=== PATIENT | female | born 1990 | race Caucasian/White ===

== ENCOUNTER 2017-07-28 14:48 | Emergency (ER) | payer BC, OTHER ==
[~2017-07-28] VITALS: Ht 160 cm; Wt 63.6 kg
[~2017-07-28 14:48] MED LIST: IBUP600 PO
[2017-07-28 14:50] VITALS: BP 146/78; PULSE 86; RESP 14; TEMP 98.6; O2SAT 97
[2017-07-28] MEDS ORDERED: ALPR.5 PO (15:46)
[2017-07-28] MEDS ORDERED: TRAM50TA PO (15:46)
--- NOTE | 2017-07-28 15:53 | PD ---
HPI Chief Complaint: Related Problem Time Seen by Provider: 15:43 Travel History International Travel<30 days: No Contact w/Intl Traveler<30days: No Traveled to known affect area: No History of Present Illness HPI 26-year-old female presents emergency department with history of fever 3 days ago of 103.9, treated with Tylenol. She states since that time she has not felt febrile but she has had some lower abdominal discomfort and low back pain. Patient states she is on oral control pills, but cannot remember her last menstrual period although she feels it is probably about a month and a half ago. She reports that she did take a urine test was most positive. She called her OB, who recommended she be seen to rule out ectopic or other issue. She denies vaginal discharge, urinary discomfort, or vaginal bleeding. Patient has history of chronic low back pain for which she sees a pain specialist treated with tramadol. Patient denies vomiting or diarrhea. She has had some mild nausea, but no upper respiratory symptoms. She has no known drug allergies. PFSH Past Medical History Anxiety: Yes Tetanus Vaccination: < 5 Years Influenza Vaccination: No ?: LMP: MAY 2017 Past Surgical History Other Surgery: Yes (BREAST AUGMENTATION; TUMMY TUCK WITH LIPO) Social History Alcohol Use: No Tobacco Use: No Substance Use: No Allergies-Medications (Allergen,Severity, Reaction): Coded Allergies: No Known Allergies (Unverified Adverse Reaction, Unknown, 07/28/17) Reported Meds & Prescriptions Reported Meds & Active Scripts Active Keflex (Cephalexin) 500 Mg Cap 500 Mg PO Q12H 7 Days Reported Xanax (Alprazolam) 0.5 Mg Tab 0.5 Mg PO Q8H PRN Tramadol (Tramadol HCl) 50 Mg Tab 50 Mg PO Q6H PRN Review of Systems Except as stated in HPI: all other systems reviewed are Neg General / Constitutional: Positive: Fever, No: Chills (See history of present illness) Eyes: No: Visual changes HENT: No: Headaches Cardiovascular: No: Chest Pain or Discomfort Respiratory: No: Shortness of Breath Gastrointestinal: Positive: Nausea, Abdominal Pain (Yesterday.), No: Vomiting, Diarrhea Genitourinary: No: Urgency (See history of present illness), Frequency, Dysuria , Flank Pain Musculoskeletal: Positive: Myalgias, Pain, No: Limited ROM Skin: No Rash Neurologic: No: Weakness Psychiatric: No: Depression Endocrine: No: Polydipsia Hematologic/Lymphatic: No: Easy Bruising Physical Exam Narrative GENERAL: Patient appears in no acute distress. SKIN: Warm and dry. Normal color. Normal turgor. No rash. HEAD: Atraumatic. Normocephalic. EYES: Pupils equal and round. No scleral icterus. No injection or drainage. ENT: No nasal bleeding or discharge. Mucous membranes pink and moist. Pharynx is clear. Airways patent. NECK: Trachea midline. No JVD. CARDIOVASCULAR: Regular rate and rhythm. RESPIRATORY: No accessory muscle use. Clear to auscultation. Breath sounds equal bilaterally. GASTROINTESTINAL: Abdomen soft, mild to moderate suprapubic tenderness, nondistended. No point tenderness or rebound. No CVA tenderness. Hepatic and splenic margins not palpable. MUSCULOSKELETAL: Extremities without clubbing, cyanosis, or edema. No obvious deformities. NEUROLOGICAL: Awake and alert. No obvious cranial nerve deficits. Motor grossly within normal limits. Five out of 5 muscle strength in the arms and legs. Normal speech. PSYCHIATRIC: Appropriate mood and affect; insight and judgment normal. Data Data Last Documented VS Vital Signs Date Time Temp Pulse Resp B/P (MAP) Pulse Ox O2 Delivery O2 Flow Rate FiO2 07/28/17 19:17 07/28/17 19:05 81 16 100 Room Air 07/28/17 14:50 98.6 Orders Orders Complete Blood Count With Diff (07/28/17 14:59) Basic Metabolic Panel (Bmp) (07/28/17 14:59) Beta Hcg (Quant/Titer) (07/28/17 14:59) Urinalysis - C+S If Indicated (07/28/17 14:59) Complete Rh (07/28/17 14:59) Type And Screen (07/28/17 14:59) Influenzae A/B Antigen (07/28/17 15:47) Us Pelvis (Ques Pr/Ect)W Trans (07/28/17 15:47) Acetaminophen (Tylenol) (07/28/17 18:30) Urine Culture (07/28/17 18:20) Ed Discharge Order (07/28/17 19:11) Labs Laboratory Tests Test 07/28/17 15:27 07/28/17 18:20 White Blood Count 9.1 TH/MM3 Red Blood Count 4.74 MIL/MM3 Hemoglobin 13.9 GM/DL Hematocrit 40.2 % Mean Corpuscular Volume 84.8 FL Mean Corpuscular Hemoglobin 29.3 PG Mean Corpuscular Hemoglobin Concent 34.5 % Red Cell Distribution Width 14.3 % Platelet Count 251 TH/MM3 Mean Platelet Volume 7.7 FL Neutrophils (%) (Auto) 64.5 % Lymphocytes (%) (Auto) 30.4 % Monocytes (%) (Auto) 4.8 % Eosinophils (%) (Auto) 0.1 % Basophils (%) (Auto) 0.2 % Neutrophils # (Auto) 5.9 TH/MM3 Lymphocytes # (Auto) 2.8 TH/MM3 Monocytes # (Auto) 0.4 TH/MM3 Eosinophils # (Auto) 0.0 TH/MM3 Basophils # (Auto) 0.0 TH/MM3 CBC Comment DIFF FINAL Differential Comment Blood Urea Nitrogen 6 MG/DL Creatinine 0.71 MG/DL Random Glucose 99 MG/DL Calcium Level 9.8 MG/DL Sodium Level 137 MEQ/L Potassium Level 3.9 MEQ/L Chloride Level 104 MEQ/L Carbon Dioxide Level 25.1 MEQ/L Anion Gap 8 MEQ/L Estimat Glomerular Filtration Rate 100 ML/MIN Human Chorionic Gonadotropin, Quant 137 MIU/ML Urine Color YELLOW Urine Turbidity HAZY Urine pH 7.0 Urine Specific [place] 1.021 Urine Protein TRACE mg/dL Urine Glucose (UA) NEG mg/dL Urine Ketones NEG mg/dL Urine Occult Blood NEG Urine Nitrite NEG Urine Bilirubin NEG Urine Urobilinogen LESS THAN 2.0 MG/DL Urine Leukocyte Esterase MOD Urine RBC 1 /hpf Urine WBC 4 /hpf Urine Squamous Epithelial Cells 19 /hpf Urine Transitional Epithelial Cells <1 /hpf Urine Bacteria MANY /hpf Urine Mucus FEW /lpf Microscopic Urinalysis Comment CULTURE INDICATED MDM Medical Decision Making Medical Screen Exam Complete: Yes Emergency Medical Condition: Yes Differential Diagnosis Febrile illness. Abdominal pain. Ectopic . Urinary tract infection. Threatened . Narrative Course Patient is medically stable at time of exam. Labs ordered including CBC, CMP, serum hCG, urinalysis and rapid influenza. Pelvic ultrasound is ordered to rule out ectopic . Rapid influenza is negative. CBC is unremarkable. Histories are unremarkable. Serum hCG is 137 Ultrasound showed: UTERUS: The myometrium has homogeneous echotexture without mass. RIGHT OVARY: Ovary contains no mass or significant cystic lesion. LEFT OVARY: Ovary contains no mass or significant cystic lesion. MISCELLANEOUS: No free fluid. CONCLUSION: Negative exam. No IUP identified. Urinalysis pending. 1900 hrs. care of the patient was turned over to Daquan Price PA-C pending urinalysis results. Please see his note for final disposition. Diagnosis Primary Impression: Elevated serum hCG Additional Impression: UTI (urinary tract infection) Qualified Codes: N30.00 - Acute cystitis without hematuria Scripts Cephalexin (Keflex) 500 Mg Cap 500 MG PO Q12H for Infection for 7 Days, #14 CAP 0 Refills Prov: Sourav Reyes MD 07/28/17 Disposition: 01 DISCHARGE HOME Condition: Stable Justin Chaudhry Jul 28, 2017 15:53
[2017-07-28 15:57] VITALS: BP 132/74; PULSE 88; RESP 17; O2SAT 98
[2017-07-28 17:11] LABS: AUTOMATED NEUTROPHIL # 5.9 TH/MM3 (1.8-7.7); BASOPHIL % 0.2 % (0.0-2.0); EOSINOPHIL % 0.1 % (0.0-4.0); HEMATOCRIT 40.2 % (35.0-46.0); HEMOGLOBIN 13.9 GM/DL (11.6-15.3); LYMPH % 30.4 % (9.0-44.0); LYMPHOCYTE # 2.8 TH/MM3 (1.0-4.8); MEAN CELL VOLUME 84.8 FL (80.0-100.0); MEAN CORPUSCULAR HEMOGLOBIN 29.3 PG (27.0-34.0); MEAN CORPUSCULAR HGB CONC 34.5 % (32.0-36.0); MEAN PLATELET VOLUME 7.7 FL (7.0-11.0); MONO % 4.8 % (0.0-8.0); MONOCYTE # 0.4 TH/MM3 (0-0.9); NEUT % 64.5 % (16.0-70.0); PLATELET COUNT 251 TH/MM3 (150-450); RED BLOOD COUNT 4.74 MIL/MM3 (4.00-5.30); RED CELL DISTRIBUTION WIDTH 14.3 % (11.6-17.2); WHITE BLOOD COUNT 9.1 TH/MM3 (4.0-11.0)
[2017-07-28 17:20] LABS: BICARBONATE 25.1 MEQ/L (21.0-32.0); CALCIUM 9.8 MG/DL (8.5-10.1); CREATININE 0.71 MG/DL (0.50-1.00)
--- NOTE | 2017-07-28 17:59 | RADRPT ---
EXAM DATE/TIME: 07/28/2017 17:13 [facility] COMPARISON: No previous studies available for comparison. INDICATIONS : Pelvic pain. LAB(S): Beta-hC MEDICAL HISTORY : Anxiety. SURGICAL HISTORY : Breast augmentation. Tummy tuck with liposuction. ENCOUNTER: Initial ACUITY: 1 week PAIN SCORE: 3/10 LOCATION: Bilateral pelvis MEASUREMENTS: UTERUS: 9.7 x 5.7 x 4.7 cm ENDOMETRIAL STRIPE: 17 mm RIGHT OVARY: 3.3 x 1.9 x 1.3 cm LEFT OVARY: 3.0 x 2.2 x 2.1 cm FREE FLUID: No FINDINGS: UTERUS: The myometrium has homogeneous echotexture without mass. RIGHT OVARY: Ovary contains no mass or significant cystic lesion. LEFT OVARY: Ovary contains no mass or significant cystic lesion. MISCELLANEOUS: No free fluid. CONCLUSION: Negative exam. No IUP identified. Joseph Mccrary MD on July 28, 2017 at 17:56 Board Certified Radiologist. This report was verified electronically.
[2017-07-28] MEDS ORDERED: ACETAMINOPHEN 325 MG TAB PO ONE (18:30)
[2017-07-28 19:01] LABS: BACTERIA, URINE MANY /hpf; BILIRUBIN, URINE NEG (NEG); BLOOD, URINE NEG (NEG); GLUCOSE,URINE NEG (NEG); KETONE, URINE NEG (NEG); MUCUS URINE FEW /lpf (OCC); NITRITE,URINE NEG (NEG); SQUAMOUS EPITHELIAL CELL URINE 19 /hpf (0-5); TRANSITIONAL EPI CELLS, URINE <1 /hpf; URINE COLOR YELLOW (YELLW/STRAW); URINE LEUKOCYTE ESTERASE MOD (NEG)
[2017-07-28 19:05] VITALS: BP 121/75; PULSE 81; RESP 16; O2SAT 100
[2017-07-28] MEDS ORDERED: CEPH-460 PO (19:16)
--- NOTE | 2017-07-28 19:16 | PD ---
Physical Exam Date Seen by Provider: Jul 28, 2017 Time Seen by Provider: 19:11 Narrative GENERAL: This is a well-nourished, well-developed patient, in no apparent distress. SKIN: No rashes, ecchymoses or lesions. Warm and dry. HEAD: Atraumatic. Normocephalic. EYES: PERRL, EOMI, no discharge or injection. No scleral icterus. EARS: Clear NOSE: Nasal turbinates appear normal. THROAT: Mucosa pink and moist. Airway patent. NECK: Trachea midline. supple, moves head freely. LUNGS: Clear to auscultation. CV: Regular in rhythm. ABDOMEN: Soft nontender. EXT: No clubbing cyanosis or edema. Data Data Last Documented VS Vital Signs Date Time Temp Pulse Resp B/P (MAP) Pulse Ox O2 Delivery O2 Flow Rate FiO2 07/28/17 19:05 81 16 121/75 (90) 100 Room Air 07/28/17 14:50 98.6 Orders Orders Complete Blood Count With Diff (07/28/17 14:59) Basic Metabolic Panel (Bmp) (07/28/17 14:59) Beta Hcg (Quant/Titer) (07/28/17 14:59) Urinalysis - C+S If Indicated (07/28/17 14:59) Complete Rh (07/28/17 14:59) Type And Screen (07/28/17 14:59) Influenzae A/B Antigen (07/28/17 15:47) Us Pelvis (Ques Pr/Ect)W Trans (07/28/17 15:47) Acetaminophen (Tylenol) (07/28/17 18:30) Urine Culture (07/28/17 18:20) Ed Discharge Order (07/28/17 19:11) Labs Laboratory Tests Test 07/28/17 15:27 07/28/17 18:20 White Blood Count 9.1 TH/MM3 Red Blood Count 4.74 MIL/MM3 Hemoglobin 13.9 GM/DL Hematocrit 40.2 % Mean Corpuscular Volume 84.8 FL Mean Corpuscular Hemoglobin 29.3 PG Mean Corpuscular Hemoglobin Concent 34.5 % Red Cell Distribution Width 14.3 % Platelet Count 251 TH/MM3 Mean Platelet Volume 7.7 FL Neutrophils (%) (Auto) 64.5 % Lymphocytes (%) (Auto) 30.4 % Monocytes (%) (Auto) 4.8 % Eosinophils (%) (Auto) 0.1 % Basophils (%) (Auto) 0.2 % Neutrophils # (Auto) 5.9 TH/MM3 Lymphocytes # (Auto) 2.8 TH/MM3 Monocytes # (Auto) 0.4 TH/MM3 Eosinophils # (Auto) 0.0 TH/MM3 Basophils # (Auto) 0.0 TH/MM3 CBC Comment DIFF FINAL Differential Comment Blood Urea Nitrogen 6 MG/DL Creatinine 0.71 MG/DL Random Glucose 99 MG/DL Calcium Level 9.8 MG/DL Sodium Level 137 MEQ/L Potassium Level 3.9 MEQ/L Chloride Level 104 MEQ/L Carbon Dioxide Level 25.1 MEQ/L Anion Gap 8 MEQ/L Estimat Glomerular Filtration Rate 100 ML/MIN Human Chorionic Gonadotropin, Quant 137 MIU/ML Urine Color YELLOW Urine Turbidity HAZY Urine pH 7.0 Urine Specific [place] 1.021 Urine Protein TRACE mg/dL Urine Glucose (UA) NEG mg/dL Urine Ketones NEG mg/dL Urine Occult Blood NEG Urine Nitrite NEG Urine Bilirubin NEG Urine Urobilinogen LESS THAN 2.0 MG/DL Urine Leukocyte Esterase MOD Urine RBC 1 /hpf Urine WBC 4 /hpf Urine Squamous Epithelial Cells 19 /hpf Urine Transitional Epithelial Cells <1 /hpf Urine Bacteria MANY /hpf Urine Mucus FEW /lpf Microscopic Urinalysis Comment CULTURE INDICATED MDM Medical Record Reviewed: Yes Supervised Visit with YONY: Yes Interpretation(s) Last 24 hours Impressions Pelvis Ultrasound 07/28/17 1540 Signed Impressions: Service Date/Time: Friday, July 28, 2017 17:13 - CONCLUSION: Negative exam. No IUP identified. Joseph Mccrary MD Vital Signs, 24 Hour Date Time Temp Pulse Resp B/P (MAP) Pulse Ox O2 Delivery O2 Flow Rate FiO2 07/28/17 19:05 81 16 121/75 (90) 100 Room Air 07/28/17 15:57 88 17 132/74 (93) 98 Room Air 07/28/17 15:50 17 07/28/17 14:50 98.6 86 14 146/78 (100) 97 Allergies Coded Allergies No Known Allergies (Unverified Adverse Reaction, Unknown, 07/28/17) Orders - Aaron Dennison Procedure Category Date Status Time Ed Discharge Order [place] 07/28/17 Verified 19:11 Laboratory Tests per Sally Test 07/28/17 15:27 Blood Urea Nitrogen 6 MG/DL Creatinine 0.71 MG/DL Random Glucose 99 MG/DL Calcium Level 9.8 MG/DL Sodium Level 137 MEQ/L Potassium Level 3.9 MEQ/L Chloride Level 104 MEQ/L Carbon Dioxide Level 25.1 MEQ/L Red Blood Count 4.74 MIL/MM3 White Blood Count 9.1 TH/MM3 Recent Impressions Pelvis Ultrasound 07/28/17 1547 Signed Impressions: Service Date/Time: Friday, July 28, 2017 17:13 - CONCLUSION: Negative exam. No IUP identified. Joseph Mccrary MD Active Scripts Active Reported Xanax (Alprazolam) 0.5 Mg Tab 0.5 Mg PO Q8H PRN Tramadol (Tramadol HCl) 50 Mg Tab 50 Mg PO Q6H PRN Microbiology 07/28/17 Influenza Types A,B Antigen ([facility]) - Final, Complete NEGATIVE FOR FLU A AND B ANTIGEN.... 07/28/17 Urine Culture, Received Pending Last 24 hours Impressions Pelvis Ultrasound 07/28/17 1547 Signed Impressions: Service Date/Time: Friday, July 28, 2017 17:13 - CONCLUSION: Negative exam. No IUP identified. Joseph Mccrary MD Differential Diagnosis Differential diagnoses: Early , ectopic, UTI, vaginitis Narrative Course Patient's quantitative hCG is 186. Her ultrasound shows no IUP. I suspect that the patient's is very early. Patient is aware of these findings and needs to have a repeat quantitative hCG in next 2-3 days. She has been instructed to return if she develops any increasing pain, vaginal bleeding or any other concerns. Patient verbalizes understanding and agrees with the treatment plan of follow-up. Patient also is aware that she has a large amount of contamination in her urine and that this most likely is not a true UTI but she will be covered with Keflex. Early , UTI Diagnosis Primary Impression: Elevated serum hCG Additional Impressions: Early stage of UTI Patient Instructions: General Instructions Additional Instruction: Rest. Increase fluids. Keflex. Need to have repeat quantitative hCG in the next 2-3 days. Follow-up with your OB doctor in next 2-3 days for repeat testing or return to the ER if he cannot get an appointment. Return to the ER sooner if he develops increasing pain, vaginal bleeding or any other problems develop. Disposition: 01 DISCHARGE HOME Condition: Stable Aaron Dennison Jul 28, 2017 19:16
== END 2017-07-28 19:23 | disposition home or self-care (01) ==
LOC: NEPD 14:48
DX: O02.81 Inappropriate change in quantitative human chorionic gonadotropin (hCG) in early pregnancy (principal); O23.11 Infections of bladder in pregnancy, first trimester; N30.00 Acute cystitis without hematuria; B95.1 Streptococcus, group B, as the cause of diseases classified elsewhere; F41.9 Anxiety disorder, unspecified; Z79.899 Other long term (current) drug therapy
CPT/HCPCS: 76700; 76817; 80048; 81001; 84702; 85025; 86850; 86900; 86901; 87086; 87804